=== PATIENT | male | born 1960 | race Caucasian/White ===

== ENCOUNTER 2018-01-29 20:43 | Emergency (ER) | payer MEDICARE ==
[~2018-01-29] VITALS: Ht 188 cm; Wt 88.5 kg
[~2018-01-29 20:43] MED LIST: CLIN1CAP4 PO; DIAZ10TA; DOCU-94; LEVO500T21 PO; MORP1CAP22; PERCOT; PHEN100C70; SACC250C PO
[2018-01-29 22:09] LABS: Basophils # (auto) 0.1 uL; Basophils % (auto) 0.7 % (0.0-2.0); Eosinophils # (auto) 0.1 uL; Hematocrit 46.3 % (41.0-53.0); Hemoglobin 15.7 g/dL (13.5-17.5); Lymphocytes % (auto) 25.3 % (10.0-50.0); Mean Corpuscular Hemoglobin 31.8 pg (28.0-32.0); Mean Corpuscular Volume 93.6 fL (80.0-100.0); Monocytes # (auto) 0.8 uL; Monocytes % (auto) 7.1 % (0.0-12.0); Neutrophils # (auto) 7.8 uL; Neutrophils % (auto) 65.9 % (37.0-80.0); Nucleated Red Blood Cells % 0.1 %; Platelet Count (auto) 257 10^3/uL (140-450); Red Blood Cells 4.94 10^6/uL (4.5-5.90); Red Cell Distribution Width 14.2 % (11.8-14.3); White Blood Cell 11.8 10^3/uL (4.4-10.8)
[2018-01-29 22:23] LABS: Partial Thromboplastin Time 26.1 sec (23.78-33.04); Prothrombin Time 10.7 sec (9.27-12.13)
[2018-01-29 22:28] LABS: Albumin 4.3 g/dL (3.4-5.0); BUN/Creatinine Ratio 24.5; Bilirubin, Total 1.2 mg/dL (0.2-1.0); Calcium 9.2 mg/dL (8.5-10.1); Total Protein 8.3 g/dL (6.4-8.2)
[2018-01-30] MEDS: SODIUM CHLORIDE 0.9% 1,000 ML IV ONE (04:00)
[2018-01-30] MEDS: ONDANSETRON HCL 4 MG/2 ML VIAL IV ONE (04:26)
[2018-01-30] MEDS: HYDROmorphone HCL 2 MG/ML VL IV ONE (04:26)
[2018-01-30 07:36] VITALS: BP 170/87
== END 2018-01-30 13:47 | disposition home or self-care (01) ==
LOC: ER 20:43
DX: R10.9 Unspecified abdominal pain (principal); R11.2 Nausea with vomiting, unspecified; I10 Essential (primary) hypertension; F17.210 Nicotine dependence, cigarettes, uncomplicated; Z79.899 Other long term (current) drug therapy; R42 Dizziness and giddiness
CPT/HCPCS: 36415; 70450; 74176; 80053; 82150; 83605; 83690; 85025; 85610; 85730; 96361; 96374; 96375; 99285; J1170; J2405; J7030